=== PATIENT | male | born 1960 | race Caucasian/White ===

== ENCOUNTER 2021-04-10 20:25 | Observation (INO) | payer BC ==
[2021-04-10] MEDS ORDERED: TYLENOL 325 MG PO ONE (21:13)
[2021-04-10] MEDS ORDERED: Sodium Chloride 0.9% 500 ML 500 ML IV ONE ×2 (21:14→21:33)
--- NOTE | 2021-04-10 21:18 | ERPHSYRPT ---
- History of Present Illness Time Seen by Provider: 04/10/21 20:34 Source: patient Exam Limitations: no limitations Patient Subjective Stated Complaint: pt states he took a home covid test and was positive. he has been having chills, fever at home 102-103, cough, body aches. Triage Nursing Assessment: pt alert and oriented, answers questions approp. pt ambulatory with steady gait noted. respirations nonlabored. exp wheezes to lt lung throughout and to rt lung base. coarse breath sounds in bilat bases. skin hot and dry. frequent hacking cough noted. Physician History: 60 years old male with history of coronary artery disease status post CABG, hypertension, COPD/asthma presented in the ER with chief complaint of flulike symptoms with positive home Covid test. Patient reports having sinus congestion, mild cough, mild shortness of breath, generalized abdominal pain with nausea vomiting and difficulty holding much down which is getting worse for the last 3 days. Also reports having fever with a T-max of 103 and last night his oxygen saturation dropped to 83/84% on room air. Other family members are also positive for COVID-19. Patient reports shortness of breath with activity and better with resting. No chest pain but pressure all over. Generalized body ache, fatigue and tiredness with lack of energy. Did not receive Covid vaccine. Timing/Duration: day(s) (9), gradual onset, worse Cough Quality/Degree: moderate, dry cough Possible Cause: illness exposure Modifying Factors: Worsens With: coughing, exertion Associated Symptoms: fever, chills, chest pain/soreness, cough, earache, facial pain, headache, lightheadedness, muscle aches, nasal congestion, nasal drainage, shortness of breath, sinus infection, wheezing Allergies/Adverse Reactions: aspirin Allergy (Severe, Verified 04/10/21 21:03) Difficulty Breathing hydrocodone Allergy (Severe, Verified 04/10/21 21:03) Difficulty Breathing Hx Tetanus, Diphtheria Vaccination/Date Given: No (unsure) Hx Influenza Vaccination/Date Given: No Hx Pneumococcal Vaccination/Date Given: No Immunizations Up to Date: No Travel Risk - International Travel Have you traveled outside of the country in past 3 weeks: No - Coronavirus Screening Are you exhibiting any of the following symptoms?: Yes Symptoms: Fever, Cough: New Onset, Shortness of Breath, Vomiting/Diarrhea, Headaches/Body Aches/Fatigue Close contact with a COVID-19 positive Pt in past 14-21 Days: Yes - Vaccine Status Have you recieved a Covid-19 vaccination: No - Review of Systems Constitutional: Fever, Chills, Fatigue, Weakness Eyes: No Symptoms Ears, Nose, & Throat: Nose Congestion, Sinus Drainage, Throat Pain Respiratory: Cough, Dyspnea, Dyspnea on Exertion (ESPINOZA) Cardiac: Chest Pain Abdominal/Gastrointestinal: Abdominal Pain, Nausea, Vomiting Genitourinary Symptoms: No Symptoms Musculoskeletal: Myalgias Skin: No Symptoms Neurological: Dizziness, Headache Psychological: No Symptoms Endocrine: No Symptoms Hematologic/Lymphatic: No Symptoms Immunological/Allergic: No Symptoms - Past Medical History Pertinent Past Medical History: Yes Cardiac History: Coronary Artery Disease, Myocardial Infarction ([place]) Respiratory History: Asthma, COPD - Past Surgical History Past Surgical History: Yes Cardiac: CABG Other Surgical History: sinus surgery - Social History Smoking Status: Never smoker Exposure to second hand smoke: No Drug Use: none Patient Lives Alone: No - Nursing Vital Signs Nursing Vital Signs: Initial Vital Signs Temperature 99.8 F 04/10/21 20:46 Pulse Rate 92 H 04/10/21 20:46 Respiratory Rate 20 04/10/21 20:46 Blood Pressure 121/79 04/10/21 20:46 O2 Sat by Pulse Oximetry 95 04/10/21 20:46 Pain Scale Pain Intensity 4 - Physical Exam General Appearance: no apparent distress, alert Eye Exam: PERRL/EOMI, eyes nml inspection Ears, Nose, Throat Exam: TMs normal, moist mucous membranes, pharyngeal erythema Neck Exam: normal inspection, supple, full range of motion Respiratory Exam: diminished breath sounds, No accessory muscle use Cardiovascular Exam: regular rate/rhythm, normal heart sounds Gastrointestinal/Abdomen Exam: soft, normal bowel sounds, tenderness (Mild generalized without guarding or rebound) Back Exam: normal inspection, normal range of motion Extremity Exam: normal inspection, normal range of motion Neurologic Exam: alert, oriented x 3, cooperative, vp project II-XII nml as tested Skin Exam: normal color SpO2 Interpretation: normal SpO2: 95 O2 Delivery: Room Air - Course EKG Interpreted by Me: RATE (90), Sinus Rhythm, Left [place] Deviation, NORMAL INTERVALS, Non-specific ST Changes Ordered Tests: Active Orders 24 hr Category Date Time Status IV Insertion STAT Care 04/10/21 21:13 Active NPO (ED) STAT Care 04/10/21 21:13 Active ABDOMEN AND PELVIS W CONTRAST [CT] Stat Exams 04/10/21 22:28 Taken CHEST 1 VIEW (PORTABLE) Stat Exams 04/10/21 21:13 Taken CHEST WITH CONTRAST [CT] Stat Exams 04/10/21 22:28 Taken BLOOD CULTURE Stat Lab 04/10/21 22:00 Received CBC W DIFF Stat Lab 04/10/21 20:45 Completed CMP Stat Lab 04/10/21 20:45 Completed D-DIMER QUANTITATIVE Stat Lab 04/10/21 20:45 Completed LIPASE Stat Lab 04/10/21 20:45 Completed Lactic Acid Stat Lab 04/10/21 21:20 Completed Manual Differential NC Stat Lab 04/10/21 20:45 Completed TROPONIN Q3H Lab 04/10/21 20:45 Completed TROPONIN Q3H Lab 04/11/21 00:41 Received TROPONIN Q3H Lab 04/11/21 03:15 Ordered TROPONIN Q3H Lab 04/11/21 06:15 Ordered TROPONIN Q3H Lab 04/11/21 09:15 Ordered UA W/RFX UR CULTURE Stat Lab 04/10/21 21:13 Ordered Medication Summary Discontinued Medications Generic Name Dose Route Start Last Admin Trade Name Freq PRN Reason Stop Dose Admin Acetaminophen 650 mg 04/10/21 21:13 04/10/21 21:34 Tylenol 325 Mg PO 04/10/21 21:14 650 mg STAT ONE Administration Acetaminophen Confirm 04/10/21 21:33 Tylenol 325 Mg Administered 04/10/21 21:34 Dose 650 mg .ROUTE .STK-MED ONE Dexamethasone Sodium Phosphate 6 mg 04/10/21 22:07 04/11/21 00:51 Decadron 10mg Inj. IV 04/10/21 22:08 6 mg STAT ONE Administration Dexamethasone Sodium Phosphate Confirm 04/11/21 00:48 Decadron 10mg Inj. Administered 04/11/21 00:49 Dose 10 mg .ROUTE .STK-MED ONE Sodium Chloride 500 mls @ 500 mls/hr 04/10/21 21:14 04/10/21 22:39 Sodium Chloride 0.9% 500 Ml IV 04/10/21 22:13 Infused .Q1H ONE Infusion Sodium Chloride Confirm 04/10/21 21:33 Sodium Chloride 0.9% 500 Ml Administered 04/10/21 21:34 Dose 500 mls @ ud IV .STK-MED ONE Ceftriaxone Sodium/Dextrose 2 g in 50 mls @ 100 mls/hr 04/10/21 22:06 04/11/21 00:50 Rocephin 2 Gm-D5w 50ml Bag IV 04/10/21 22:35 100 mls/hr STAT STA 100 mls/hr Administration Azithromycin 500 mg in 250 mls @ 250 mls/hr 04/10/21 22:06 04/11/21 00:51 Zithromax 500 Mg/ 250 Ml Nacl Premix IV 04/10/21 23:05 250 mls/hr STAT STA 250 mls/hr Administration Remdesivir 200 mg/ Sodium 250 mls @ 125 mls/hr 04/10/21 22:07 Chloride IV 04/11/21 00:06 ONCE ONE Azithromycin Confirm 04/11/21 00:48 Zithromax 500 Mg/ 250 Ml Nacl Premix Administered 04/11/21 00:49 Dose 500 mg in 250 mls @ ud IV .STK-MED ONE Ceftriaxone Sodium/Dextrose Confirm 04/11/21 00:48 Rocephin 2 Gm-D5w 50ml Bag Administered 04/11/21 00:49 Dose 2 g in 50 mls @ ud IV .STK-MED ONE Ondansetron HCl 4 mg 04/10/21 21:30 04/10/21 21:34 Zofran 4 Mg/2 Ml Vial IV 04/10/21 21:31 4 mg STAT ONE Administration Ondansetron HCl Confirm 04/10/21 21:33 Zofran 4 Mg/2 Ml Vial Administered 04/10/21 21:34 Dose 4 mg .ROUTE .STK-MED ONE Lab/Rad Data: Laboratory Result Diagrams 04/10/21 20:45 04/10/21 20:45 Laboratory Results 04/10/21 04/10/21 04/10/21 Range/Units 22:52 21:20 20:45 WBC (4.0-10.5) K/mm3 RBC (4.1-5.6) M/mm3 Hgb (12.5-18.0) gm/dl Hct (42-50) % MCV (78-100) fl MCH (26-32) pg MCHC (32-36) g/dl RDW (11.5-14.0) % Plt Count (150-450) K/mm3 MPV (7.5-11.0) fl Segmented Neutrophils (36.-66.) % Band Neutrophils (0.0-2.0) % Lymphocytes (Manual) (24-44) % Monocytes (Manual) (0.0-12.0) % Atypical Lymphocytes % Platelet Estimate (NORMAL) RBC Morphology D-Dimer 1132 H* (215-500) ng/mL Sodium (137-145) mmol/L Potassium (3.5-5.1) mmol/L Chloride (98-107) mmol/L Carbon Dioxide (22-30) mmol/L Anion Gap (5-15) MEQ/L BUN (9-20) mg/dL Creatinine (0.66-1.25) mg/dL Estimated GFR ML/MIN Glucose (74-106) mg/dL Lactic Acid 1.6 (0.4-2.0) Calcium (8.4-10.2) mg/dL Total Bilirubin (0.2-1.3) mg/dL AST (17-59) U/L ALT (0-50) U/L Alkaline Phosphatase (38-126) U/L Troponin I (0.000-0.034) ng/mL Serum Total Protein (6.3-8.2) g/dL Albumin (3.5-5.0) g/dL Lipase (23-300) U/L SARS-CoV-2 (PCR) POSITIVE A (NEGATIVE) 04/10/21 04/10/21 04/10/21 Range/Units 20:45 20:45 20:45 WBC 3.3 L (4.0-10.5) K/mm3 RBC 4.64 (4.1-5.6) M/mm3 Hgb 14.2 (12.5-18.0) gm/dl Hct 41.9 L (42-50) % MCV 90.3 (78-100) fl MCH 30.6 (26-32) pg MCHC 33.9 (32-36) g/dl RDW 13.2 (11.5-14.0) % Plt Count 163 (150-450) K/mm3 MPV 11.2 H (7.5-11.0) fl Segmented Neutrophils 73 H (36.-66.) % Band Neutrophils 7 H (0.0-2.0) % Lymphocytes (Manual) 9 L (24-44) % Monocytes (Manual) 9 (0.0-12.0) % Atypical Lymphocytes 2 % Platelet Estimate NORMAL (NORMAL) RBC Morphology NORMAL D-Dimer (215-500) ng/mL Sodium 129 L (137-145) mmol/L Potassium 3.3 L (3.5-5.1) mmol/L Chloride 91 L (98-107) mmol/L Carbon Dioxide 26 (22-30) mmol/L Anion Gap 14.7 (5-15) MEQ/L BUN 14 (9-20) mg/dL Creatinine 0.90 (0.66-1.25) mg/dL Estimated GFR > 60.0 ML/MIN Glucose 106 (74-106) mg/dL Lactic Acid (0.4-2.0) Calcium 8.4 (8.4-10.2) mg/dL Total Bilirubin 1.10 (0.2-1.3) mg/dL AST 82 H (17-59) U/L ALT 49 (0-50) U/L Alkaline Phosphatase 97 (38-126) U/L Troponin I 0.012 (0.000-0.034) ng/mL Serum Total Protein 6.9 (6.3-8.2) g/dL Albumin 3.9 (3.5-5.0) g/dL Lipase 167 (23-300) U/L SARS-CoV-2 (PCR) (NEGATIVE) - Progress Progress: improved Air Movement: fair Progress Note: 04/10/21 22:10 60 years old is evaluated for Covid symptoms worsening with shortness of breath, nausea/vomiting and fever. Patient is maintaining oxygen saturation around 94% but in mild distress. And getting short of breath while talking and exertion. And this is with resting and I believe with exertion his oxygen will further drop which according to patient was in the 80s last night. CBC consistent with viral/Covid etiology and hyponatremia. Given gentle hydration. Chest x-ray bilateral airspace disease more on the right side, reviewed history work-up with Dr. Haro, agreed with admission, giving antibiotics, remdesivir Decadron. Will obtain D-dimer and if positive CTA would be done otherwise we will continue with prophylactic dose of Lovenox. Blood Culture(s) Obtained: Yes Antibiotics given: Yes Discussed with DrJose: Other (Dr. Elizabeth) Will see patient in: hospital (observation) Counseled pt/family regarding: lab results, diagnosis, rad results - Departure Departure Disposition: Observation Clinical Impression: COVID-19 virus detected, Hyponatremia Bilateral pneumonia Qualifiers: Pneumonia type: due to unspecified organism Lung location: unspecified part of lung Qualified Code(s): J18.9 - Pneumonia, unspecified organism Condition: Stable Critical Care Time: No Referrals: TAMY RODRIGUEZ NP [Primary Care Provider] -
[2021-04-10 21:24] LABS: Hematocrit 41.9 % (42-50); Hemoglobin 14.2 gm/dl (12.5-18.0); Mean Cell Volume 90.3 fl (78-100); Mean Corpuscular Hemoglobin 30.6 pg (26-32); Mean Corpuscular Hgb Concent. 33.9 g/dl (32-36); Mean Platelet Volume 11.2 fl (7.5-11.0); Platelet Count 163 K/mm3 (150-450); Red Blood Count 4.64 M/mm3 (4.1-5.6); Red Cell Distribution Width 13.2 % (11.5-14.0); White Blood Count 3.3 K/mm3 (4.0-10.5)
[2021-04-10 21:28] LABS: ALBUMIN 3.9 g/dL (3.5-5.0); ALKALINE PHOSPHATASE 97 U/L (38-126); ANION GAP 14.7 MEQ/L (5-15); BLOOD UREA NITROGEN 14 mg/dL (9-20); CHLORIDE 91 mmol/L (98-107); Calcium 8.4 mg/dL (8.4-10.2); Carbon Dioxide 26 mmol/L (22-30); EST GLOMERULAR FILTRATION RATE > 60.0 ML/MIN; Glucose 106 mg/dL (74-106); LIPASE 167 U/L (23-300); Potassium 3.3 mmol/L (3.5-5.1); SGOT/AST 82 U/L (17-59); SGPT/ALT 49 U/L (0-50); SODIUM 129 mmol/L (137-145); Total Protein 6.9 g/dL (6.3-8.2)
[2021-04-10] MEDS ORDERED: Zofran 4 MG/2 ML VIAL IV ONE (21:30)
[2021-04-10] MEDS ORDERED: TYLENOL 325 MG ONE (21:33)
[2021-04-10] MEDS ORDERED: Zofran 4 MG/2 ML VIAL ONE (21:33)
[2021-04-10] MEDS ORDERED: ROCEPHIN 2 Gm-D5w 50ML BAG** 2 G/50 ML IVPB IV STA (22:06)
[2021-04-10] MEDS ORDERED: Zithromax 500 MG/ 250 ML NaCl Premix 500 MG/250 ML IVPB IV STA (22:06)
[2021-04-10] MEDS ORDERED: DECADRON 10MG INJ. IV ONE (22:07)
[2021-04-10] MEDS ORDERED: REMDESIVIR 200 MG in Sodium Chloride 0.9% 250 ML 250 ML IV ONE (22:07)
[2021-04-10 22:48] LABS: ATYPICAL LYMPHS 2 %; BAND 7 % (0.0-2.0); Lymphocytes 9 % (24-44); Monocyte 9 % (0.0-12.0); Neutrophils 73 % (36.-66.); Platelet Estimate NORMAL (NORMAL); Total Cells Counted 100
[2021-04-11] MEDS ORDERED: DECADRON 10MG INJ. ONE (00:48)
[2021-04-11] MEDS ORDERED: ROCEPHIN 2 Gm-D5w 50ML BAG** 2 G/50 ML IVPB IV ONE (00:48)
[2021-04-11] MEDS ORDERED: Zithromax 500 MG/ 250 ML NaCl Premix 500 MG/250 ML IVPB IV ONE (00:48)
[2021-04-11 02:56] LABS: Appearance CLEAR (CLEAR); Bilirubin NEGATIVE (NEGATIVE); Blood NEGATIVE Ery/ul (0-5); Glucose NEGATIVE (NEGATIVE); Ketones SMALL (NEGATIVE); Leukocyte Esterase NEGATIVE (NEGATIVE); Nitrite NEGATIVE (NEGATIVE); Protein,Urine Dip 30 (Negative); RBC 0-2 /HPF (0-2); Specific Gravity 1.033 (1.005-1.025); Urobilinogen 2 mg/dL (0-1); WBC 0-2 /HPF (0-5)
[2021-04-11 03:02] LABS: Bacteria NONE SEEN /HPF (NEGATIVE)
[2021-04-11] MEDS ORDERED: TYLENOL 325 MG PO PRN (03:13)
[2021-04-11 03:32] LABS: Absolute Neutrophil Ct (ANC) 2.33 (1.4-6.9); BASOPHIL % 0.3 % (0.0-0.4); Basophil (Absolute #) 0.01 (0-0.4); Eosinophil (Absolute #) 0 (0-0.5); Hematocrit 37.6 % (42-50); Hemoglobin 12.9 gm/dl (12.5-18.0); Lymphocyte (Absolute #) 0.37 (1.0-4.6); Lymphocytes % 12.5 % (24.0-44.0); Mean Cell Volume 90.6 fl (78-100); Mean Corpuscular Hemoglobin 31.1 pg (26-32); Mean Corpuscular Hgb Concent. 34.3 g/dl (32-36); Mean Platelet Volume 10.8 fl (7.5-11.0); Monocyte (Absolute #) 0.26 (0.0-1.3); Monocytes % 8.8 % (0.0-12.0); Neutrophil % 78.4 % (36.0-66.0); Platelet Count 140 K/mm3 (150-450); Red Blood Count 4.15 M/mm3 (4.1-5.6); Red Cell Distribution Width 13.1 % (11.5-14.0)
[2021-04-11] MEDS ORDERED: Sodium Chloride 0.9% 250 ML 250 ML IV ONE (03:32)
[2021-04-11] MEDS ORDERED: REMDESIVIR IV ONE (03:33)
[2021-04-11 03:46] LABS: ALBUMIN 3.4 g/dL (3.5-5.0); ALKALINE PHOSPHATASE 82 U/L (38-126); ANION GAP 13.3 MEQ/L (5-15); BLOOD UREA NITROGEN 13 mg/dL (9-20); CHLORIDE 97 mmol/L (98-107); Calcium 7.8 mg/dL (8.4-10.2); Carbon Dioxide 22 mmol/L (22-30); Creatinine 1 0.71 mg/dL (0.66-1.25); EST GLOMERULAR FILTRATION RATE > 60.0 ML/MIN; Glucose 112 mg/dL (74-106); Potassium 3.7 mmol/L (3.5-5.1); SGOT/AST 75 U/L (17-59); SGPT/ALT 46 U/L (0-50); SODIUM 128 mmol/L (137-145); Total Protein 5.9 g/dL (6.3-8.2)
[2021-04-11] MEDS ORDERED: VENTOLIN COMMON CANISTER IH PRN (04:19)
[2021-04-11] MEDS: Sodium Chloride 0.9% 1000 ML 1,000 ML IV SCH ×2 (04:26→22:57)
--- NOTE | 2021-04-11 08:54 | XRAY ---
Indication: Positive Covid 19. Short of breath, cough, nausea, vomiting, diarrhea, abdomen pain, body ache, and fever. Multiple contiguous images obtained through the chest using 80 cc Isovue 370 contrast and PE protocol. Comparison: None There is adequate opacification of the pulmonary arteries to include the lobar and segmental branches. No pulmonary embolus. Heart is not enlarged demonstrate CABG surgery. Aorta is normal in course and caliber. Small mediastinal calcified nodes. No pathologic mediastinal/hilar lymphadenopathy. Small hiatal hernia. Lungs demonstrates scattered peripheral groundglass airspace opacities, right lung greater than left. No consolidation or effusion. Bony thorax intact with mild osteopenia, mild degenerative changes throughout the spine, and sternotomy wires. CT abdomen/pelvis reported separately. Impression: 1. Negative pulmonary embolus. 2. Diffuse bilateral peripheral groundglass airspace disease. Commonly reported imaging features of Covid 19 pneumonia are present. Other processes such as influenza pneumonia and organizing pneumonia, as can be seen with drug toxicity and connective tissue disease, can cause a similar imaging pattern. 3. Incidental small hiatal hernia, chronic bony findings, and old granulomatous disease. Comment: Preliminary interpretation made by C. No critical discrepancy.
--- NOTE | 2021-04-11 08:54 | XRAY ---
Indication: Cough. Positive Covid 19. Comparison: None Portable chest demonstrates bilateral hazy patchy airspace disease greatest right base. No consolidation/large effusion. Heart not enlarged with CABG surgery. Bony thorax intact with mild degenerative changes.
--- NOTE | 2021-04-11 08:56 | XRAY ---
Indication: Positive Covid 19. Short of breath, cough, nausea, vomiting, diarrhea, abdomen pain, body ache, and fever. Multiple contiguous images obtained through the abdomen and pelvis using 80 cc Isovue 370 contrast. Comparison: None CT chest reported separately. Noncontrasted stomach and bowel loops nonobstructed. No free fluid/air. Spleen is enlarged measuring 13.1 cm. Tiny hepatic/splenic calcified granulomas. Remaining liver, gallbladder, pancreas, spleen, adrenal glands, kidneys, ureters, and bladder are unremarkable. Minimal aortoiliac calcifications. No AAA or pathologic retroperitoneal lymphadenopathy. Osseous structures intact with mild osteopenia and mild degenerative changes throughout the spine. No ventral or inguinal hernias. Impression: 1. Splenomegaly, chronic bony findings, and old granulomatous disease. 2. Remaining CT abdomen/pelvis with contrast exam is negative. Comment: Preliminary interpretation made by [facility]. No critical discrepancy.
[2021-04-11] MEDS: DECADRON 10MG INJ. IV SCH (10:23)
[2021-04-11] MEDS: ENOXAPARIN SODIUM SQ SCH (10:23)
[2021-04-11] MEDS: Pepcid 20 MG VIAL IV SCH ×2 (10:23→21:09)
--- NOTE | 2021-04-11 11:18 | HP ---
CHIEF COMPLAINT: Cough, vomiting, positive COVID-19 test several days, fever of up to 103, myalgia. HISTORY OF PRESENT ILLNESS: The patient states his daughter brought it home to his . He stayed actually in the garage, but he still got it a few days later. They themselves are doing well. He just can't stop vomiting and coughing for the last 3 or 4 days. MEDICAL PROBLEMS: The patient does have some asthma. Had no COVID-19 shot. No travel. No chronic diseases besides COVID-19 except he did have a myocardial infarction years ago. REVIEW OF SYSTEMS: HEENT: No problems hearing or seeing. CHEST: Short of breath, frequent cough, occasional achy chest pain. ABDOMEN: Some diffuse abdominal pain, nausea, vomiting, and also diarrhea for 3 days. : No problems urinating. MUSCULOSKELETAL: Aching all over. SKIN: No symptoms. NEURO: Dizzy. He has a headache. SOCIAL HISTORY: Patient is . Has several adult children. He is retired. Active sportsman. Never smoked. SURGERIES: Coronary artery bypass, sinus surgery. PHYSICAL EXAMINATION: The patient is a normal 60 y/o WM this morning who is alert, oriented, and looks good. Vital signs - Temperature 97, pulse 80, respirations 14, weight is probably 150. HEENT: Pupils equal and reactive to light. NECK: Supple without adenopathy. CHEST: Clear both sides and posterior. CVS: No murmurs or gallops. ABDOMEN: Soft. No masses or organomegaly. EXTREMITIES: Normal. LABORATORY DATA: The patient's sodium and potassium are both low probably from the diarrhea and vomiting. COVID-19 test is positive. WBC is normal. D-Dimer is minimally elevated. IMPRESSION: 1. COVID-19 PNEUMONIA. 2. COVID-19 GASTROENTERITIS. PLAN: He will be treated with Remdesivir, Decadron, and anticoagulated. Kept on his home medicines. His antibiotics will be stopped as he has no bacterial infection. PROGNOSIS: Good.
[2021-04-11] MEDS: Flonase NASAL NS SCH (12:19)
[2021-04-11] MEDS: Protonix 40MG Tablet PO SCH (12:19)
[2021-04-11] MEDS: Mucinex 600MG ER Tabs PO SCH ×2 (14:03→21:08)
[2021-04-11] MEDS ORDERED: ROCEPHIN 1 Gm-D5w 50 ml Bag** 1 G/50 ML IVPB IV SCH (22:00)
[2021-04-11] MEDS ORDERED: Zithromax 500 MG/ 250 ML NaCl Premix 500 MG/250 ML IVPB IV SCH (22:00)
[2021-04-11] MEDS ORDERED: REMDESIVIR 100 MG in Sodium Chloride 0.9% 100 ML BAG 100 ML IV SCH (22:00)
[2021-04-12 06:12] LABS: ANION GAP 14.3 MEQ/L (5-15); Potassium 3.7 mmol/L (3.5-5.1)
[2021-04-12 08:03] VITALS: O2SAT 92
[2021-04-12 08:34] VITALS: BP 116/69; PULSE 83
[2021-04-12] MEDS: DECADRON 10MG INJ. IV SCH (09:22)
[2021-04-12] MEDS: Protonix 40MG Tablet PO SCH (09:22)
[2021-04-12] MEDS: ENOXAPARIN SODIUM SQ SCH (09:23)
[2021-04-12] MEDS: Flonase NASAL NS SCH (09:23)
[2021-04-12] MEDS: Pepcid 20 MG VIAL IV SCH (09:24)
== END 2021-04-12 10:31 | disposition home or self-care (01) ==
LOC: ED 20:25 → MED SURG 04-11 03:09
PROVIDERS: ADMIT Family Medicine; ATTEND Family Medicine
DX: U07.1 COVID-19 (principal); J12.82 Pneumonia due to coronavirus disease 2019; K52.9 Noninfective gastroenteritis and colitis, unspecified; R05 Cough; Z20.822 Contact with and (suspected) exposure to COVID-19; R51.9 Headache, unspecified; E87.6 Hypokalemia; E87.1 Hypo-osmolality and hyponatremia; R42 Dizziness and giddiness
CPT/HCPCS: 36000; 36415; 71045; 71260; 74177; 80051; 80053; 81001; 83036; 83605; 83690; 84484; 85025; 85379; 87040; 93268; 94762; 96360; 96374; 96375; 99285; G0378; U0003; J0456; J0696; J1100; J1650; J2405; A9270-GY

== ENCOUNTER 2021-04-14 10:26 | Inpatient (IN) | payer BC ==
--- NOTE | 2021-04-14 10:57 | ERPHSYRPT ---
- History of Present Illness Time Seen by Provider: 04/14/21 10:54 Source: patient Exam Limitations: no limitations Patient Subjective Stated Complaint: Pt is covid positive and [facility] and was discharged on Thursday, pt c/o of shortness of breath Triage Nursing Assessment: Pt brought to the ER by his , hypertensive, denies pain, walked extremely slow due to SOB, states that he used an entire albuterol inhaler during the night, skin n/w/d, pulses normal, right side lungs diminished Physician History: Pt is covid positive and [facility] and was discharged on Thursday, pt c/o of shortness of breath denies pain, walked extremely slow due to SOB, states that he used an entire albuterol inhaler during the night, Timing/Duration: yesterday Severity of Dyspnea-Max: moderate Severity of Dyspnea-Current: moderate Modifying Factors: Improves With: albuterol inhaler Associated Symptoms: wheezing Allergies/Adverse Reactions: aspirin Allergy (Severe, Verified 04/14/21 10:41) Difficulty Breathing hydrocodone Allergy (Severe, Verified 04/14/21 10:41) Difficulty Breathing Home Medications: Albuterol 8 gm Mdi Hfa [Ventolin Hfa MDI] 2 puffs IH QID 04/11/21 [History] Fluticasone Propionate [Flonase NASAL] 1 spray INTRANASAL DAILY 04/11/21 [History] PANTOPRAZOLE 40 mg Tablet [Protonix 40MG Tablet] 1 tab PO DAILY 04/11/21 [History] Hx Tetanus, Diphtheria Vaccination/Date Given: No (unsure) Hx Influenza Vaccination/Date Given: No Hx Pneumococcal Vaccination/Date Given: No Travel Risk - International Travel Have you traveled outside of the country in past 3 weeks: No - Coronavirus Screening Are you exhibiting any of the following symptoms?: Yes Symptoms: Shortness of Breath Close contact with a COVID-19 positive Pt in past 14-21 Days: No - Vaccine Status Have you recieved a Covid-19 vaccination: No - Review of Systems Constitutional: Weakness, No Fever, No Chills Eyes: No Symptoms Ears, Nose, & Throat: No Symptoms Respiratory: Dyspnea, Dyspnea on Exertion (ESPINOZA), No Cough Cardiac: Orthopnea, No Chest Pain, No Edema, No Syncope Abdominal/Gastrointestinal: No Abdominal Pain, No Nausea, No Vomiting, No Diarrhea Genitourinary Symptoms: No Dysuria Musculoskeletal: No Back Pain, No Neck Pain Skin: No Rash Neurological: No Dizziness, No Focal Weakness, No Sensory Changes Psychological: No Symptoms Endocrine: No Symptoms All Other Systems: Reviewed and Negative - Past Medical History Pertinent Past Medical History: Yes Neurological History: No Pertinent History ENT History: No Pertinent History Cardiac History: Coronary Artery Disease, Myocardial Infarction ([place]) Respiratory History: Asthma, COPD Endocrine Medical History: No Pertinent History Musculoskeletal History: No Pertinent History GI Medical History: No Pertinent History History: No Pertinent History Psycho-Social History: No Pertinent History Male Reproductive Disorders: No Pertinent History - Past Surgical History Past Surgical History: Yes Neuro Surgical History: No Pertinent History Cardiac: CABG Respiratory: No Pertinent History Gastrointestinal: No Pertinent History Genitourinary: No Pertinent History Musculoskeletal: No Pertinent History Male Surgical History: No Pertinent History Other Surgical History: sinus surgery - Social History Smoking Status: Never smoker Exposure to second hand smoke: No Drug Use: none Patient Lives Alone: No - Nursing Vital Signs Nursing Vital Signs: Initial Vital Signs Temperature 98.2 F 04/14/21 10:31 Pulse Rate 88 04/14/21 10:31 Respiratory Rate 17 04/14/21 10:31 Blood Pressure 145/82 04/14/21 10:31 O2 Sat by Pulse Oximetry 95 04/14/21 10:31 Pain Scale Pain Intensity 0 - Physical Exam General Appearance: moderate distress, alert Eye Exam: PERRL/EOMI Neck Exam: normal inspection, supple Respiratory Exam: diminished breath sounds, accessory muscle use, prolonged expirations, crackles/rales, rhonchi, wheezing Cardiovascular/Chest Exam: normal heart sounds, regular rate/rhythm Abdominal/Gastrointestinal Exam: soft, No tenderness, No distention, No mass Extremity Exam: non-tender, normal range of motion, normal inspection, no calf tenderness, no pedal edema Neurologic Exam: alert, oriented x 3, cooperative, ssis developer II-XII nml as tested, sensation nml, No motor deficits Skin Exam: normal color, warm, No dry SpO2 Interpretation: normal SpO2: 95 O2 Delivery: Room Air - Course Nursing assessment & vital signs reviewed: Yes - Radiology Exams Chest X-ray Interpretation: Reviewed by me Ordered Tests: Active Orders 24 hr Category Date Time Status Automobile Salesman STAT Care 04/14/21 10:49 Active EKG-ER Only STAT Care 04/14/21 10:47 Active IV Insertion STAT Care 04/14/21 11:12 Active CHEST 2 VIEWS (PA AND LAT) Stat Exams 04/14/21 10:51 Taken CBC W DIFF Stat Lab 04/14/21 11:05 Completed CMP Stat Lab 04/14/21 11:05 Completed D-DIMER QUANTITATIVE Stat Lab 04/14/21 11:05 Completed Manual Differential NC Stat Lab 04/14/21 11:05 Completed NT PRO BNP Stat Lab 04/14/21 11:05 Completed TROPONIN Stat Lab 04/14/21 11:05 Completed Medication Summary Generic Name Dose Route Start Last Admin Trade Name Freq PRN Reason Stop Dose Admin Sodium Chloride 1,000 mls @ 50 mls/hr 04/14/21 11:00 04/14/21 11:09 Sodium Chloride 0.9% 1000 Ml IV 05/14/21 10:59 50 mls/hr .Q20H BERNABE Administration Lab/Rad Data: Laboratory Result Diagrams 04/14/21 11:05 04/14/21 11:05 Laboratory Results 04/14/21 04/14/21 04/14/21 Range/Units 11:05 11:05 11:05 WBC 6.8 (4.0-10.5) K/mm3 RBC 3.87 L (4.1-5.6) M/mm3 Hgb 11.9 L (12.5-18.0) gm/dl Hct 35.2 L (42-50) % MCV 91.0 (78-100) fl MCH 30.7 (26-32) pg MCHC 33.8 (32-36) g/dl RDW 13.5 (11.5-14.0) % Plt Count 226 (150-450) K/mm3 MPV 10.1 (7.5-11.0) fl D-Dimer 1032 H* (215-500) ng/mL Sodium 133 L (137-145) mmol/L Potassium 3.2 L (3.5-5.1) mmol/L Chloride 100 (98-107) mmol/L Carbon Dioxide 24 (22-30) mmol/L Anion Gap 12.6 (5-15) MEQ/L BUN 9 (9-20) mg/dL Creatinine 0.63 L (0.66-1.25) mg/dL Estimated GFR > 60.0 ML/MIN Glucose 110 H (74-106) mg/dL Calcium 8.1 L (8.4-10.2) mg/dL Total Bilirubin 0.90 (0.2-1.3) mg/dL AST 72 H (17-59) U/L ALT 47 (0-50) U/L Alkaline Phosphatase 74 (38-126) U/L Troponin I < 0.012 (0.000-0.034) ng/mL NT-Pro-B Natriuret Pep 1280 H (0-900) pg/mL Serum Total Protein 5.7 L (6.3-8.2) g/dL Albumin 3.1 L (3.5-5.0) g/dL - Progress Progress: unchanged Air Movement: fair Blood Culture(s) Obtained: No Antibiotics given: No Discussed with Dr.: Other (Dr Frandy Elizabeth) Will see patient in: hospital (full admit) Counseled pt/family regarding: lab results, diagnosis, need for follow-up, rad results - Departure Departure Disposition: In-patient Admission Clinical Impression: Pneumonia due to COVID-19 virus Condition: Fair Critical Care Time: Yes Critical Care Time(excluding separately billable procedures): Critical 30-74 mins Referrals: TAMY RODRIGUEZ NP [Primary Care Provider] - Instructions: Pneumonia, Adult (DC)
[2021-04-14] MEDS ORDERED: Sodium Chloride 0.9% 1000 ML 1,000 ML IV SCH (11:00)
[2021-04-14] MEDS ORDERED: Sodium Chloride 0.9% 1000 ML 1,000 ML ONE (11:06)
[2021-04-14 11:21] LABS: Hematocrit 35.2 % (42-50); Hemoglobin 11.9 gm/dl (12.5-18.0); Mean Corpuscular Hemoglobin 30.7 pg (26-32); Mean Corpuscular Hgb Concent. 33.8 g/dl (32-36); Mean Platelet Volume 10.1 fl (7.5-11.0); Platelet Count 226 K/mm3 (150-450); Red Blood Count 3.87 M/mm3 (4.1-5.6); Red Cell Distribution Width 13.5 % (11.5-14.0); White Blood Count 6.8 K/mm3 (4.0-10.5)
[2021-04-14 11:51] LABS: ALBUMIN 3.1 g/dL (3.5-5.0); ALKALINE PHOSPHATASE 74 U/L (38-126); ANION GAP 12.6 MEQ/L (5-15); BLOOD UREA NITROGEN 9 mg/dL (9-20); CHLORIDE 100 mmol/L (98-107); Calcium 8.1 mg/dL (8.4-10.2); Carbon Dioxide 24 mmol/L (22-30); Creatinine 1 0.63 mg/dL (0.66-1.25); EST GLOMERULAR FILTRATION RATE > 60.0 ML/MIN; Glucose 110 mg/dL (74-106); NT PRO BNP 1280 pg/mL (0-900); Potassium 3.2 mmol/L (3.5-5.1); SGOT/AST 72 U/L (17-59); SGPT/ALT 47 U/L (0-50); SODIUM 133 mmol/L (137-145); TROPONIN < 0.012 ng/mL (0.000-0.034); Total Protein 5.7 g/dL (6.3-8.2)
[2021-04-14] MEDS ORDERED: TYLENOL 325 MG PO PRN (15:11)
[2021-04-14] MEDS ORDERED: VENTOLIN COMMON CANISTER IH PRN (15:11)
[2021-04-14] MEDS: ENOXAPARIN SODIUM SQ SCH (15:37)
[2021-04-14] MEDS: Ativan 1 MG PO PRN (18:43)
--- NOTE | 2021-04-14 18:54 | XRAY ---
Indication: Short of breath and cough. Positive covid 19. Comparison: April 10, 2021. PA/lateral chest again demonstrates bilateral hazy patchy airspace disease today greatest right middle lobe. No effusion. Heart not enlarged again with CABG. Bony thorax intact.
[2021-04-14] MEDS: Lactated Ringers 1,000 ML IV SCH (20:41)
[2021-04-14 21:44] LABS: Lymphocytes 5 % (24-44); Monocyte 3 % (0.0-12.0); Neutrophils 92 % (36.-66.); Platelet Estimate NORMAL (NORMAL); Total Cells Counted 100
[2021-04-14] MEDS: Pepcid 20 MG VIAL IV SCH (22:40)
[2021-04-15] MEDS: Ativan 1 MG PO PRN ×2 (00:49→20:15)
[2021-04-15 06:39] LABS: Hematocrit 36.8 % (42-50); Hemoglobin 12.2 gm/dl (12.5-18.0); Mean Cell Volume 92.9 fl (78-100); Mean Corpuscular Hemoglobin 30.8 pg (26-32); Mean Corpuscular Hgb Concent. 33.2 g/dl (32-36); Mean Platelet Volume 10.4 fl (7.5-11.0); Platelet Count 248 K/mm3 (150-450); Red Blood Count 3.96 M/mm3 (4.1-5.6); Red Cell Distribution Width 13.9 % (11.5-14.0); White Blood Count 5.6 K/mm3 (4.0-10.5)
[2021-04-15 06:57] LABS: ALBUMIN 3.2 g/dL (3.5-5.0); ALKALINE PHOSPHATASE 72 U/L (38-126); BLOOD UREA NITROGEN 8 mg/dL (9-20); CHLORIDE 100 mmol/L (98-107); Calcium 8.5 mg/dL (8.4-10.2); Carbon Dioxide 29 mmol/L (22-30); Creatinine 1 0.71 mg/dL (0.66-1.25); EST GLOMERULAR FILTRATION RATE > 60.0 ML/MIN; Glucose 93 mg/dL (74-106); NT PRO BNP 1820 pg/mL (0-900); Potassium 3.4 mmol/L (3.5-5.1); SGOT/AST 61 U/L (17-59); SGPT/ALT 55 U/L (0-50); SODIUM 138 mmol/L (137-145)
[2021-04-15] MEDS: REMDESIVIR 100 MG in Sodium Chloride 0.9% 100 ML BAG 100 ML IV SCH (08:26)
[2021-04-15 08:34] LABS: Lymphocytes 20 % (24-44); Monocyte 8 % (0.0-12.0); Neutrophils 72 % (36.-66.); Total Cells Counted 100
[2021-04-15 08:35] LABS: Platelet Estimate NORMAL (NORMAL)
[2021-04-15] MEDS: ENOXAPARIN SODIUM SQ SCH (09:49)
[2021-04-15] MEDS: DECADRON 10MG INJ. IV SCH (09:50)
[2021-04-15] MEDS: Pepcid 20 MG VIAL IV SCH ×2 (09:50→21:50)
[2021-04-15] MEDS: Protonix 40MG Tablet PO SCH (09:51)
[2021-04-15] MEDS: Flonase NASAL NS SCH (09:51)
[2021-04-15] MEDS: OLUMIANT PO SCH (09:58)
[2021-04-15] MEDS ORDERED: Ventolin Hfa MDI IH SCH (10:00)
[2021-04-15] MEDS ORDERED: Zithromax 500 MG/ 250 ML NaCl Premix 500 MG/250 ML IVPB IV SCH (10:00)
[2021-04-15] MEDS ORDERED: ROCEPHIN 1 Gm-D5w 50 ml Bag** 1 G/50 ML IVPB IV SCH (10:00)
[2021-04-15] MEDS ORDERED: Decadron 4 MG INJ IV SCH (10:00)
[2021-04-15] MEDS: SENOKOT 8.6 MG PO SCH (14:26)
--- NOTE | 2021-04-15 15:18 | HP ---
CHIEF COMPLAINT: Shortness of breath, cough. HISTORY OF PRESENT ILLNESS: The patient is a 60 year-old white male who was discharged from this hospital two days ago. He came then COVID-positive and complaints of lower GI, vomiting and diarrhea which went away with three days of treatment. Since going home he has become short of breath, cough, very anxious. He denies any chest pain. He is extremely fatigued. Of note, he was discharged 48 hours ago without shortness of breath. He probably did get some Remdesivir at that time. MEDICATIONS: Ventolin MDI, Protonix 40 q.d., Flonase q.d. ALLERGIES: ASPIRIN. VICODIN. PAST MEDICAL HISTORY: He is very anxious. No chronic illnesses. PAST SURGICAL HISTORY: Sinus surgery. REVIEW OF SYSTEMS: HEENT: No problems hearing or seeing. CHEST: Usually not short of breath although he has some asthma. Short of breath the last two days. ABDOMEN: No abdominal pain, nausea or vomiting since he was released. NEUROLOGIC: No dizziness. No headache. No strokes or neuropathy. ENDOCRINE: No diabetes. No hypertension. CARDIAC: Apparently had a myocardial infarction severe years ago. I notice he is not on a statin drug and he is allergic to aspirin. It gives him anaphylaxis it sounds like. SOCIAL HISTORY: The patient is , nonsmoker. PHYSICAL EXAMINATION: The patient is alert, orientated. He is ambulatory. VITAL SIGNS: Temperature 98F, pulse 90, respirations 18, blood pressure 142/82. O2 saturation 95% on 5 liters. HEENT: Pupils equal and reactive to light. NECK: Supple without adenopathy. CHEST: Clear. CVS: No murmurs or gallops. Slightly fast. ABDOMEN: No masses or organomegaly. EXTREMITIES: Fair pulses. No edema. No cyanosis. IMPRESSION: The patient has COVID pneumonia bilaterally. He has a history of a myocardial infarction. His D-dimer is elevated at 1,0032. Sodium 132, potassium 3.2. PLAN: The patient will be treated with Remdesivir, Decadron, be anticoagulated. We will put him on Olumiant 4 mg. PROGNOSIS: [place] to be fair.
[2021-04-15] MEDS: Lactated Ringers 1,000 ML IV SCH (17:07)
[2021-04-16] MEDS: OLUMIANT PO SCH (08:57)
[2021-04-16] MEDS: Protonix 40MG Tablet PO SCH (08:57)
[2021-04-16] MEDS: Pepcid 20 MG VIAL IV SCH (08:57)
[2021-04-16] MEDS: ENOXAPARIN SODIUM SQ SCH (08:58)
[2021-04-16] MEDS: DECADRON 10MG INJ. IV SCH (08:58)
[2021-04-16] MEDS: SENOKOT 8.6 MG PO SCH (08:59)
[2021-04-16] MEDS: REMDESIVIR 100 MG in Sodium Chloride 0.9% 100 ML BAG 100 ML IV SCH (09:16)
[2021-04-16 10:07] VITALS: PULSE 79
[2021-04-16 11:08] VITALS: O2SAT 91
[2021-04-16] MEDS: Flonase NASAL NS SCH (11:55)
[2021-04-16 12:42] VITALS: BP 112/62
--- NOTE | 2021-04-29 10:27 | DS ---
ADMISSION DIAGNOSIS: COVID pneumonia. DISCHARGE DIAGNOSIS: COVID PNEUMONIA. HOSPITAL COURSE: The patient is a 60 year-old white male admitted with achiness, fatigue and cough. His COVID test was positive. He had extremely mild hypoxia. He was treated with Olumiant 4 mg q.d., Ativan 2 mg every 4 hours PRN, Remdesivir, Decadron and Lovenox. He was placed on a regular diet. Tylenol every 4 hours. D-dimer was not really elevated at 940. He had shortness of breath, fatigue and anxiety but that went away overnight. He was walking, feeling well and asked to go home. He was discharged on the medications he was on at home. PROGNOSIS: Good.
== END 2021-04-16 12:56 | disposition home or self-care (01) | DRG 179 ==
LOC: ED 10:26 → MED SURG 15:02
PROVIDERS: ADMIT Family Medicine; ATTEND Family Medicine
DX: U07.1 COVID-19 (principal); J12.82 Pneumonia due to coronavirus disease 2019; Z79.899 Other long term (current) drug therapy; R53.83 Other fatigue; R79.1 Abnormal coagulation profile
CPT/HCPCS: 36000; 36415; 71046; 80053; 83880; 84484; 85025; 85379; 93005; 93041; 94762; 99285; 99291; J1100; J1650; A9270-GY

== ENCOUNTER 2021-04-18 05:20 | Observation (INO) | payer BC ==
[2021-04-18] MEDS ORDERED: DECADRON 10MG INJ. IV ONE (05:41)
[2021-04-18 06:02] LABS: A-aADO2 43; ABG HEMOGLOBIN 12.5; ABG POTASSIUM 3.3 (3.5-5.1); ABG SITE LEFT RADIAL; ALLEN TEST OK? YES; ARTERIAL BLD GAS O2 SATURATION 96.3 % (95-100); ARTERIAL BLOOD GAS BASE EXCESS 4.5 (-2.0-2.0); ARTERIAL BLOOD GAS FIO2 21 %; ARTERIAL BLOOD GAS PCO2 31 mmHg (35-45); ARTERIAL BLOOD GAS PO2 68 mmHg (75-100); ARTERIAL BLOOD GAS pH 7.54 (7.35-7.45); CARBOXYHEMOGLOBIN 1.2 % THgb (0.0-6.9); HCO3- 26.5 (22-28); HGB O2 SAT 94.4 g/dF (94-100); Methhemoglobin 0.7 % (1.4-1.5)
--- NOTE | 2021-04-18 06:08 | ERPHSYRPT ---
- History of Present Illness Time Seen by Provider: 04/18/21 05:40 Source: patient Exam Limitations: no limitations Patient Subjective Stated Complaint: pt states "I have trouble catching my breath." Triage Nursing Assessment: pt ambulated into the er; pt axo x4; c/o SOB; pt is 97-98% on room air; no respiratory distress present on assessment; pt states that he can come off quarantine today; pt states he was discharged off the covid unit on 04/16; with states at 0100 pt woke up briefly confused, dizzy, shaking, shallow breathing; pt states "I feel like I have lump in my throat."; clear lung sounds in all lobes; active bowel sounds; clear heart tones; vitals wnl; afebrile Physician History: Patient is a 60-year-old male presents to our ED with shortness of breath. Patient is Covid positive. He was discharged from our Covid unit on April 16 3 days ago. Patient states he is having difficulty catching his breath. Patient awoke at 1 AM feeling confused dizzy and shaky. Patient states he felt as though he had a lump in his throat. Upon arrival to our ED patient's oxygen saturation was 97 to 98%. No associated chest pain. No fever. No nausea vomiting or diaphoresis. Patient states that shortness of breath is progressive. Symptoms are moderate in intensity. No specific worsening or improving factors. Patient voices no other complaints concerns at this time. Timing/Duration: today Activities at Onset: activity Severity of Dyspnea-Max: moderate Severity of Dyspnea-Current: mild Possible Cause: occasional episodes Modifying Factors: Improves With: activity Associated Symptoms: dizziness (Shakiness and confusion.), No chest pain/discomfort, No fever Allergies/Adverse Reactions: aspirin Allergy (Severe, Verified 04/18/21 05:23) Difficulty Breathing hydrocodone Allergy (Severe, Verified 04/18/21 05:23) Difficulty Breathing Home Medications: Albuterol 8 gm Mdi Hfa [Ventolin Hfa MDI] 2 puffs IH QID 04/11/21 [History] Fluticasone Propionate [Flonase NASAL] 1 spray INTRANASAL DAILY 04/11/21 [History] PANTOPRAZOLE 40 mg Tablet [Protonix 40MG Tablet] 1 tab PO DAILY 04/11/21 [History] Hx Tetanus, Diphtheria Vaccination/Date Given: No (unsure) Hx Influenza Vaccination/Date Given: No Hx Pneumococcal Vaccination/Date Given: No Travel Risk - International Travel Have you traveled outside of the country in past 3 weeks: No - Coronavirus Screening Are you exhibiting any of the following symptoms?: Yes Symptoms: Shortness of Breath - Vaccine Status Have you recieved a Covid-19 vaccination: No - Review of Systems Constitutional: No Symptoms, No Fever, No Chills Eyes: No Symptoms Ears, Nose, & Throat: No Symptoms Respiratory: No Symptoms, No Cough, No Dyspnea Cardiac: No Symptoms, No Chest Pain, No Edema, No Syncope Abdominal/Gastrointestinal: No Symptoms, No Abdominal Pain, No Nausea, No Vomiting, No Diarrhea Genitourinary Symptoms: No Symptoms, No Dysuria Musculoskeletal: No Symptoms, No Back Pain, No Neck Pain Skin: No Symptoms, No Rash Neurological: No Symptoms, No Dizziness, No Focal Weakness, No Sensory Changes Psychological: No Symptoms Endocrine: No Symptoms Hematologic/Lymphatic: No Symptoms Immunological/Allergic: No Symptoms All Other Systems: Reviewed and Negative - Past Medical History Pertinent Past Medical History: Yes Neurological History: No Pertinent History ENT History: No Pertinent History Cardiac History: Coronary Artery Disease, Myocardial Infarction ([place]) Respiratory History: Asthma, COPD Endocrine Medical History: No Pertinent History Musculoskeletal History: No Pertinent History GI Medical History: No Pertinent History History: No Pertinent History Psycho-Social History: No Pertinent History Male Reproductive Disorders: No Pertinent History - Past Surgical History Past Surgical History: Yes Neuro Surgical History: No Pertinent History Cardiac: CABG Respiratory: No Pertinent History Gastrointestinal: No Pertinent History Genitourinary: No Pertinent History Musculoskeletal: No Pertinent History Male Surgical History: No Pertinent History Other Surgical History: sinus surgery - Social History Smoking Status: Never smoker Exposure to second hand smoke: No Drug Use: none Patient Lives Alone: No - Nursing Vital Signs Nursing Vital Signs: Initial Vital Signs Temperature 97.6 F 04/18/21 05:25 Pulse Rate 72 04/18/21 05:25 Respiratory Rate 18 04/18/21 05:25 Blood Pressure 129/78 04/18/21 05:25 O2 Sat by Pulse Oximetry 98 04/18/21 05:25 - Physical Exam General Appearance: no apparent distress, alert Eye Exam: PERRL/EOMI, eyes nml inspection, scleral icterus Ears, Nose, Throat Exam: hearing grossly normal, normal ENT inspection, normal pharynx Neck Exam: normal inspection, supple Respiratory Exam: normal breath sounds, chest tenderness, lungs clear, respiratory distress Cardiovascular/Chest Exam: normal heart sounds, regular rate/rhythm Abdominal/Gastrointestinal Exam: soft, No tenderness, No distention, No mass Extremity Exam: non-tender, normal range of motion, normal inspection, no calf tenderness, no pedal edema Neurologic Exam: alert, oriented x 3, cooperative, sales branch manager II-XII nml as tested, sensation nml, No motor deficits Skin Exam: normal color, warm, No dry SpO2 Interpretation: normal SpO2: 98 O2 Delivery: Room Air - Course Nursing assessment & vital signs reviewed: Yes - Radiology Exams Chest X-ray Interpretation: Interpreted by me (Vargas of Covid pneumonia. Normal cardiac silhouette. Intact bony thorax.) Ordered Tests: Active Orders 24 hr Category Date Time Status Senior Operator STAT Care 04/18/21 05:39 Active IV Insertion STAT Care 04/18/21 05:38 Active Pulse Oximetry (ED) STAT Care 04/18/21 05:38 Active CHEST 1 VIEW (PORTABLE) Stat Exams 04/18/21 05:39 Taken ARTERIAL BLOOD GASES Urgent Lab 04/18/21 05:57 Completed CBC W DIFF Stat Lab 04/18/21 06:10 Completed CMP Stat Lab 04/18/21 06:10 Completed Manual Differential NC Stat Lab 04/18/21 06:10 Completed NT PRO BNP Stat Lab 04/18/21 06:10 Completed TROPONIN Q3H Lab 04/18/21 06:10 Completed TROPONIN Q3H Lab 04/18/21 08:45 Ordered TROPONIN Q3H Lab 04/18/21 11:45 Ordered TROPONIN Q3H Lab 04/18/21 14:45 Ordered TROPONIN Q3H Lab 04/18/21 17:45 Ordered Transfer Order Routine Transfer 04/18/21 Ordered Medication Summary Discontinued Medications Generic Name Dose Route Start Last Admin Trade Name Freq PRN Reason Stop Dose Admin Dexamethasone Sodium Phosphate 8 mg 04/18/21 05:41 04/18/21 06:56 Decadron 10mg Inj. IV 04/18/21 05:42 8 mg STAT ONE Administration Dexamethasone Sodium Phosphate Confirm 04/18/21 06:54 Decadron 10mg Inj. Administered 04/18/21 06:55 Dose 10 mg .ROUTE .STK-MED ONE Lorazepam 0.5 mg 04/18/21 07:33 Ativan 2 Mg/1 Ml Vial IV 04/18/21 07:34 ONCE STA Lab/Rad Data: Laboratory Result Diagrams 04/18/21 06:10 04/18/21 06:10 Laboratory Results 04/18/21 04/18/21 04/18/21 Range/Units 06:10 06:10 06:10 WBC 7.2 (4.0-10.5) K/mm3 RBC 4.06 L (4.1-5.6) M/mm3 Hgb 12.2 L (12.5-18.0) gm/dl Hct 37.3 L (42-50) % MCV 91.9 (78-100) fl MCH 30.0 (26-32) pg MCHC 32.7 (32-36) g/dl RDW 13.8 (11.5-14.0) % Plt Count 361 (150-450) K/mm3 MPV 10.1 (7.5-11.0) fl Puncture Site pCO2 (35-45) mmHg pO2 (75-100) mmHg Base Excess (-2.0-2.0) O2 Saturation (94-100) g/dF ABG pH (7.35-7.45) ABG HCO3 (22-28) ABG O2 Sat (Measured) (95-100) % Oumar Test A-a Gradient a/A Ratio Hemoglobin Carboxyhemoglobin (0.0-6.9) % THgb Methemoglobin (1.4-1.5) % Potassium 3.5 (3.5-5.1) Temperature C POC O2 Flow Rate % Sodium 137 (137-145) mmol/L Chloride 106 (98-107) mmol/L Carbon Dioxide 24 (22-30) mmol/L Anion Gap 10.7 (5-15) MEQ/L BUN 14 (9-20) mg/dL Creatinine 0.70 (0.66-1.25) mg/dL Estimated GFR > 60.0 ML/MIN Glucose 88 (74-106) mg/dL Calcium 8.7 (8.4-10.2) mg/dL Total Bilirubin 1.10 (0.2-1.3) mg/dL AST 35 (17-59) U/L ALT 38 (0-50) U/L Alkaline Phosphatase 77 (38-126) U/L Troponin I < 0.012 (0.000-0.034) ng/mL NT-Pro-B Natriuret Pep 1500 H (0-900) pg/mL Serum Total Protein 5.5 L (6.3-8.2) g/dL Albumin 3.0 L (3.5-5.0) g/dL 04/18/21 Range/Units 05:57 WBC (4.0-10.5) K/mm3 RBC (4.1-5.6) M/mm3 Hgb (12.5-18.0) gm/dl Hct (42-50) % MCV (78-100) fl MCH (26-32) pg MCHC (32-36) g/dl RDW (11.5-14.0) % Plt Count (150-450) K/mm3 MPV (7.5-11.0) fl Puncture Site LEFT RADIAL pCO2 31 L (35-45) mmHg pO2 68 L (75-100) mmHg Base Excess 4.5 H (-2.0-2.0) O2 Saturation 94.4 (94-100) g/dF ABG pH 7.54 H (7.35-7.45) ABG HCO3 26.5 (22-28) ABG O2 Sat (Measured) 96.3 (95-100) % Oumar Test YES A-a Gradient 43 a/A Ratio 0.61 Hemoglobin 12.5 Carboxyhemoglobin 1.2 (0.0-6.9) % THgb Methemoglobin 0.7 L (1.4-1.5) % Potassium 3.3 L (3.5-5.1) Temperature 37.0 C POC O2 Flow Rate 21 % Sodium (137-145) mmol/L Chloride (98-107) mmol/L Carbon Dioxide (22-30) mmol/L Anion Gap (5-15) MEQ/L BUN (9-20) mg/dL Creatinine (0.66-1.25) mg/dL Estimated GFR ML/MIN Glucose (74-106) mg/dL Calcium (8.4-10.2) mg/dL Total Bilirubin (0.2-1.3) mg/dL AST (17-59) U/L ALT (0-50) U/L Alkaline Phosphatase (38-126) U/L Troponin I (0.000-0.034) ng/mL NT-Pro-B Natriuret Pep (0-900) pg/mL Serum Total Protein (6.3-8.2) g/dL Albumin (3.5-5.0) g/dL - Progress Progress: improved Air Movement: good Progress Note: ABG shows mild hypoxia with compensation. Patient placed on oxygen. BNP mildly elevated. 40 mg Lasix IV administered. Chest x-ray reveals worsening of COVID- 19 pneumonia. Case discussed with Dr. Elizabeth who accepts admission to observation. Plan of care discussed with patient. He agrees to admission [facility] for further evaluation and treatment. 04/18/21 07:37 04/18/21 07:43 Blood Culture(s) Obtained: No Antibiotics given: No Will see patient in: hospital (observation) Counseled pt/family regarding: lab results, diagnosis, rad results - Departure Departure Disposition: Observation Clinical Impression: COVID-19, Pneumonia due to COVID-19 virus, Shortness of breath, Elevated brain natriuretic peptide (BNP) level Condition: Stable Critical Care Time: No Referrals: TAMY RODRIGUEZ NP [Primary Care Provider] -
[2021-04-18 06:25] LABS: Hematocrit 37.3 % (42-50); Hemoglobin 12.2 gm/dl (12.5-18.0); Mean Cell Volume 91.9 fl (78-100); Mean Corpuscular Hgb Concent. 32.7 g/dl (32-36); Mean Platelet Volume 10.1 fl (7.5-11.0); Platelet Count 361 K/mm3 (150-450); Red Blood Count 4.06 M/mm3 (4.1-5.6); Red Cell Distribution Width 13.8 % (11.5-14.0); White Blood Count 7.2 K/mm3 (4.0-10.5)
[2021-04-18 06:31] LABS: ALKALINE PHOSPHATASE 77 U/L (38-126); ANION GAP 10.7 MEQ/L (5-15); BLOOD UREA NITROGEN 14 mg/dL (9-20); CHLORIDE 106 mmol/L (98-107); Calcium 8.7 mg/dL (8.4-10.2); Carbon Dioxide 24 mmol/L (22-30); EST GLOMERULAR FILTRATION RATE > 60.0 ML/MIN; Glucose 88 mg/dL (74-106); Potassium 3.5 mmol/L (3.5-5.1); SGOT/AST 35 U/L (17-59); SGPT/ALT 38 U/L (0-50); SODIUM 137 mmol/L (137-145); Total Protein 5.5 g/dL (6.3-8.2)
[2021-04-18 06:41] LABS: NT PRO BNP 1500 pg/mL (0-900)
[2021-04-18] MEDS ORDERED: DECADRON 10MG INJ. ONE (06:54)
[2021-04-18] MEDS ORDERED: Ativan 2 MG/1 ML VIAL IV STA (07:33)
[2021-04-18] MEDS ORDERED: Lasix 20 MG/2 ML IV STA (07:42)
[2021-04-18] MEDS ORDERED: Ativan 2 MG/1 ML VIAL ONE (08:10)
[2021-04-18] MEDS ORDERED: Lasix 40 MG/4 ML ONE (08:10)
--- NOTE | 2021-04-18 08:57 | XRAY ---
Indication: Short of breath. Positive Covid 19. Comparison: April 14, 2021. Portable chest demonstrates mild worsening bilateral patchy airspace disease especially right mid to lower lung again without large effusion. Heart is not enlarged again with CABG.
[2021-04-18 09:02] LABS: Lymphocytes 24 % (24-44); Monocyte 9 % (0.0-12.0); Neutrophils 67 % (36.-66.); Platelet Estimate NORMAL (NORMAL); Total Cells Counted 100
[2021-04-18] MEDS ORDERED: REMDESIVIR 200 MG in Sodium Chloride 0.9% 250 ML 250 ML IV ONE (13:00)
[2021-04-18] MEDS ORDERED: VENTOLIN COMMON CANISTER IH SCH (13:00)
[2021-04-18] MEDS: Ativan 1 MG PO PRN ×3 (14:28→22:19)
[2021-04-18] MEDS ORDERED: Lasix 20 MG/2 ML IV ONE (15:15)
[2021-04-18] MEDS ORDERED: VENTOLIN COMMON CANISTER IH PRN (15:18)
[2021-04-19 06:18] LABS: Hematocrit 38.3 % (42-50); Hemoglobin 12.4 gm/dl (12.5-18.0); Mean Cell Volume 93.6 fl (78-100); Mean Corpuscular Hemoglobin 30.3 pg (26-32); Mean Corpuscular Hgb Concent. 32.4 g/dl (32-36); Platelet Count 313 K/mm3 (150-450); Red Blood Count 4.09 M/mm3 (4.1-5.6); Red Cell Distribution Width 13.8 % (11.5-14.0); White Blood Count 6.8 K/mm3 (4.0-10.5)
[2021-04-19 06:50] LABS: ALBUMIN 3.3 g/dL (3.5-5.0); ALKALINE PHOSPHATASE 79 U/L (38-126); ANION GAP 11.5 MEQ/L (5-15); BLOOD UREA NITROGEN 16 mg/dL (9-20); CHLORIDE 101 mmol/L (98-107); Calcium 8.8 mg/dL (8.4-10.2); Carbon Dioxide 29 mmol/L (22-30); Creatinine 1 0.71 mg/dL (0.66-1.25); EST GLOMERULAR FILTRATION RATE > 60.0 ML/MIN; Glucose 89 mg/dL (74-106); NT PRO BNP 562 pg/mL (0-900); Potassium 3.7 mmol/L (3.5-5.1); SGOT/AST 38 U/L (17-59); SGPT/ALT 47 U/L (0-50); SODIUM 138 mmol/L (137-145); Total Protein 6.1 g/dL (6.3-8.2)
[2021-04-19 06:57] LABS: Risk Ratio 4.1
[2021-04-19 07:07] LABS: BAND 3 % (0.0-2.0); Lymphocytes 19 % (24-44); Metamyelocyte 1 %; Monocyte 11 % (0.0-12.0); Neutrophils 66 % (36.-66.); Total Cells Counted 100
[2021-04-19 07:08] LABS: Absolute Neutrophil Ct (ANC) 4.72 (1.4-6.9); Platelet Estimate NORMAL (NORMAL)
[2021-04-19] MEDS ORDERED: REMDESIVIR 100 MG in Sodium Chloride 0.9% 100 ML BAG 100 ML IV SCH (10:00)
--- NOTE | 2021-04-19 11:47 | HP ---
CHIEF COMPLAINT: Shortness of breath, cough, chest aching, can't get my breath. HISTORY OF PRESENT ILLNESS: The patient is a 60-year-old white male who was admitted one week ago and discharged two days ago with GI problems from COVID. He had diffuse diarrhea, vomiting and that improved for several days with IV fluids and COVID medication including Remdesivir and Decadron. He has chronic anxiety. I gave him some Phenergan to help him sleep. Apparently that did not help. He is very anxious. His neighbor from COVID who was younger than him. Family history of coronary artery disease. He has quit smoking. He has been stable and has low cholesterol now. He denies any real chest pain, feels like he has a lump in his throat and cannot get his breath. We did a blood gas in the emergency room which was very suggestive of hyperventilation. He was very shaky and confused in the emergency room. TRAVEL RISK: No travel recently. He does not know where he got the illness. CORONAVIRUS SCREENING: He has not had the vaccine. MEDICATIONS: Ventolin, Flonase, Protonix. ALLERGIES: ASPIRIN. HYDROCODONE. PAST MEDICAL HISTORY: Asthma. Anxiety. Coronary artery disease. PAST SURGICAL HISTORY: Bypass numerous years ago. Sinus surgery. REVIEW OF SYSTEMS: Shakiness, shortness of breath. HEENT: No problems hearing or seeing. Taste is okay. ABDOMEN/GI: The patient had vomiting and diarrhea that seems to have gone away. : No problems urinating. MUSCULOSKELETAL: Some achiness in his back, muscles of his legs. PSYCHOLOGIC: The patient has chronic anxiety and admits to that which has gotten much worse since his neighbor and he was diagnosed with COVID. CARDIAC: The patient had a myocardial infarction numerous years ago. He is off of statin drugs because his cholesterol he states is normal and he is allergic aspirin. He has no chest heaviness. RESPIRATORY: He states he has a history of asthma and chronic obstructive pulmonary disease. SOCIAL HISTORY: Never smoked. Lives with his . Never used illicit drugs. PHYSICAL EXAMINATION: The patient is alert, orientated, appropriately aged or younger than normal 60-year-old white male who is hyperventilating and seems to have a lot of anxiety. VITAL SIGNS: In the emergency room temperature 97F, pulse 72, respirations 18, blood pressure 129/78. O2 saturation 98% on 2 liters. GENERAL: Anxious, alert, orientated. HEENT: Pupils equal and reactive to light. NECK: No bruits. No masses. CHEST: Clear. CVS: No murmurs or gallops. ABDOMEN: Soft. No masses or organomegaly. EXTREMITIES: Normal. LAB DATA AND TESTS: Chest x-ray showed some early COVID findings. D-dimer has gone up. His pulse oximetry a couple hours later when I examined him had dropped down to the 80's on room air. White count 7.2. Potassium 3.5. His BNP is elevated at 1500 and will repeat that and give him a little bit of Lasix. Chest x-ray showed no heart failure though. Blood gas on admission showed pCO2 was low at 31, pO2 level was low at 68 and saturation 94% and pH was 7.54 consistent with some mild hypoxia and some hyperventilation. IMPRESSION: The patient does have: 1) COVID pneumonia, mild. 2) Anxiety disorder. 3) Coronary artery disease in the past. 4) History of gastroenteritis from COVID disease. PLAN: The patient was placed on dexamethasone, Remdesivir, anticoagulated. For his anxiety we will start him on Ativan PRN and Lexapro 20 mg q.d. I will re-evaluate him in the morning. PROGNOSIS: [place] to be good.
[2021-04-19] MEDS ORDERED: Lexapro 10 MG PO SCH (12:00)
[2021-04-19] MEDS: Ativan 1 MG PO PRN ×3 (12:19→20:54)
[2021-04-19] MEDS ORDERED: ENOXAPARIN SODIUM SQ SCH (12:30)
[2021-04-19] MEDS ORDERED: Flonase NASAL NS SCH (12:30)
[2021-04-19] MEDS ORDERED: Protonix 40MG Tablet PO SCH (12:30)
--- NOTE | 2021-04-19 16:39 | PCM.DCORD ---
- Discharge Disposition: Home, Self-Care Condition: Stable Prescriptions: New Lorazepam 1 mg [Ativan 1 MG] 1 mg PO Q4HPRN PRN #30 tablet PRN Reason: Anxiety No Action PANTOPRAZOLE 40 mg Tablet [Protonix 40MG Tablet] 1 tab PO DAILY Fluticasone Propionate [Flonase NASAL] 1 spray INTRANASAL DAILY Albuterol 8 gm Mdi Hfa [Ventolin Hfa MDI] 2 puffs IH QID Additional Instructions: rx sent for ativan per Dr Elizabeth request for anxiety. Follow up with: TAMY RODRIGUEZ NP [Primary Care Provider] -
[2021-04-20 06:55] LABS: Hematocrit 38.9 % (42-50); Hemoglobin 12.6 gm/dl (12.5-18.0); Mean Cell Volume 93.3 fl (78-100); Mean Corpuscular Hemoglobin 30.2 pg (26-32); Mean Corpuscular Hgb Concent. 32.4 g/dl (32-36); Mean Platelet Volume 10.1 fl (7.5-11.0); Platelet Count 296 K/mm3 (150-450); Red Blood Count 4.17 M/mm3 (4.1-5.6); Red Cell Distribution Width 13.7 % (11.5-14.0); White Blood Count 5.9 K/mm3 (4.0-10.5)
[2021-04-20 06:59] LABS: ALKALINE PHOSPHATASE 74 U/L (38-126); ANION GAP 9.3 MEQ/L (5-15); BLOOD UREA NITROGEN 17 mg/dL (9-20); CHLORIDE 103 mmol/L (98-107); Calcium 8.5 mg/dL (8.4-10.2); Carbon Dioxide 29 mmol/L (22-30); Creatinine 1 0.82 mg/dL (0.66-1.25); EST GLOMERULAR FILTRATION RATE > 60.0 ML/MIN; Glucose 82 mg/dL (74-106); SGOT/AST 36 U/L (17-59); SGPT/ALT 43 U/L (0-50); SODIUM 136 mmol/L (137-145); Total Protein 5.6 g/dL (6.3-8.2)
[2021-04-20 07:01] LABS: INR 1.23 (0.8-3.0); PROTIME 14.5 SECONDS (9.4-12.5)
[2021-04-20 08:01] LABS: BAND 1 % (0.0-2.0); Eosinophil 3 % (0.00-3.0); Lymphocytes 31 % (24-44); Monocyte 8 % (0.0-12.0); Neutrophils 57 % (36.-66.); Platelet Estimate NORMAL (NORMAL); Total Cells Counted 100
[2021-04-20 08:08] VITALS: BP 121/69
[2021-04-20] MEDS: Ativan 1 MG PO PRN (09:40)
[2021-04-20 10:16] VITALS: O2SAT 96
[2021-04-20 10:28] VITALS: PULSE 78
== END 2021-04-20 10:25 | disposition home or self-care (01) ==
LOC: ED 05:20 → MED SURG 08:35
PROVIDERS: ADMIT Family Medicine; ATTEND Family Medicine
DX: U07.1 COVID-19 (principal); J12.82 Pneumonia due to coronavirus disease 2019; R42 Dizziness and giddiness; R41.0 Disorientation, unspecified; R79.1 Abnormal coagulation profile; F41.9 Anxiety disorder, unspecified; Z79.899 Other long term (current) drug therapy; Z86.79 Personal history of other diseases of the circulatory system
CPT/HCPCS: 36000; 36415; 36600; 71045; 80053; 80061; 82375; 82803; 83721; 83880; 84484; 85025; 85379; 85610; 93041; 93268; 94760; 94762; 96374; 96375; 99285; G0378; J1100; J1650; J1940; J2060; A9270-GY